=== PATIENT | female | born 1985 ===

== ENCOUNTER 2018-07-26 06:00 | Inpatient (IN) | payer BC, SELFPAY ==
[2018-07-26 06:56] VITALS: BP 115/75; BMI 26.4
[2018-07-26] MEDS ORDERED: Butorphanol Tartrate 1 MG/ML VIAL SLOW IVP PRN (07:10)
[2018-07-26] MEDS ORDERED: Acetaminophen 500 MG TAB PO PRN (07:10)
[2018-07-26] MEDS ORDERED: Ondansetron PF 4 MG/2 ML Vial IVP PRN (07:11)
[2018-07-26] MEDS ORDERED: Promethazine HCl 25 MG/ML VIAL IM PRN (07:11)
[2018-07-26] MEDS: Misoprostol 200 MCG TAB VAG PRN ×4 (08:00→17:41)
[2018-07-26 08:37] LABS: Hemoglobin 13.4 g/dL (12.0-16.0); Mean Corpuscular HGB CONC 33.4 g/dL (32.0-36.0); Mean Corpuscular Volume 92.6 fL (78.0-98.0); Platelet Count 296 thou/uL (130-400); RBC Distribution Width 11.2 % (11.5-14.5); Red Blood Cell (RBC) Count 4.33 mill/uL (4.20-5.40); White Blood Cell (WBC) Count 8.1 thou/uL (4.8-10.8)
--- NOTE | 2018-07-26 08:40 | ULT ---
ULTRASOUND OB LIMITED: HISTORY: Sixteen weeks. Check for viability. COMPARISON: None. FINDINGS: Real-time, fletcher scale, color Doppler analysis of the pelvis performed by transabdominal and transvagi nal approach. There appears to be a dysmorphic intrauterine with no heart tones. No motion. The amniotic sac appears to be collapsing. IMPRESSION: No heart tones detected. The nurse, Emely, is notified of findings by the technologist at the time of the exam. CODE CR POS: CET
[2018-07-26 09:17] LABS: HBSAg Index 0.21 S/CO (0-0.99); Hep B Surf Ag Non-Reactive S/CO (NonReactive)
--- NOTE | 2018-07-26 09:45 | PDOC.LDHP ---
Labor and Delivery H&P Chief complaint: other ( at 16 weeks gestation) HPI: Seen in my office earlier this week for U/S. Usually follows with a local customer account executive but she was unable to find FHT that day. Came to my office for U/S and confirmed with U/S - fetus measuring 12-13 weeks, no FHT, no motion. After discussion with patient and we agreed on induction of labor with cytotec on L&D today. Current gestational age (weeks): 16 Due date: 01/07/19 Dating criteria: first trimester ultrasound (LMP 03/21/19 giving EDC of 12/26/18. Early U/S at 8 weeks chagned EDC to 01/07/19.) Grav: 5 Para: 3 Current complications: other ( at 16 weeks) Current medications: pre- vitamins Previous surgical history: none Allergies/Adverse Reactions: Allergies Allergy/AdvReac Type Severity Reaction Status Date / Time Androgenic Anabolic Steroid Allergy Verified 07/26/18 06:57 Social history: none - Physical Exam Vital signs reviewed and normal: yes General: NAD, resting Heart: RRR Lungs: nonlabored breathing Abdomen: gravid Extremeties: no edema - Vaginal Exam cm dilated: 0 Effacement: 0% - OB Labs Blood type: A RH: positive Antibody Screen: negative HIV: negative RPR: negative HEPSAg: negative Urine drug screen: not done Rubella: immune - Assessment - IOL with cytotec - Plan Plan: admit to L&D (Cytotec per DIU protocol, 400mcg every 3 hours until delivery)
[2018-07-26 09:47] LABS: Syphilis Antibody Nonreactive (Nonreactive); Syphilis Antibody Index 0.03 S/CO (<1.00 Non-Reactive)
--- NOTE | 2018-07-26 14:37 | PDOC.EVN ---
Event Note - Event Note Event Note: OBGYN 1440: Early second trimester loss: Case reviewed with Dr Cohen. demise about 1 hour ago at an estimated EGA around 13 weeks... She last received vag cytotec 400mcg at 1130 pre-delivery. NO fever...and no clinical evidence infection. For placental evacuation, I would rec per ACOG, repeat 400mcg Q 3-4 hours until placenta out (vaginal) If no spont passage of placenta, may need D&C but ACOG states decision is made on clinical grounds vs exact time limit.
--- NOTE | 2018-07-26 19:36 | PDOC.EVN ---
Event Note - Event Note Event Note: Please see Dr. Munguia's note for time of delivery. I cam to bedside at that time and fetus had delivered in the bed without complication. Placenta was delayed until 620pm, 2 additional doses of cytotec 400mcg were given and the placenta delivered spontaneously with the RN. I came to evaluate the patient and exmaine the placenta. [place] is doing well, pain is much better and bleeding is minimal. Placenta appears intact and whole. Plan D/C home after 4 hours observation, around 10pm tonight. Discussed warning signs for retained POC and infection with pt and her mother. F/u in 2 weeks with me or associate Rohan.
== END 2018-07-26 22:22 | disposition home or self-care (01) | DRG 779 ==
LOC: L&D 06:03
PROVIDERS: ADMIT Family Medicine; ATTEND Family Medicine
DX: O02.1 Missed abortion (principal); Z88.8 Allergy status to other drugs, medicaments and biological substances
CPT/HCPCS: 36415; 76815; 85027; 86780; 86850; 86900; 86901; 87340; J0595; J2405